=== PATIENT | female | born 1975 ===

== ENCOUNTER 2024-04-11 08:08 | Outpatient (CLI) | payer OTHER, SELFPAY ==
--- NOTE | ~2024-04-11 | XR_ITS ---
XR chest 2V DATE: 04/11/2024 10:00 INDICATION: Preoperative evaluation. Prior smoker. TECHNIQUE: 2 views COMPARISON: None FINDINGS: Heart size is within normal range. No hilar or mediastinal enlargement. No pulmonary infilt rate or consolidation, pleural effusion or pulmonary vascular congestion or pneumothorax. Included sk eletal structures are unremarkable. IMPRESSION: No active cardiopulmonary disease Reviewed, dictated and finalized at location A.
== END 2024-04-11 08:09 ==
DX: Z01.818 Encounter for other preprocedural examination (principal)
CPT/HCPCS: 71046